=== PATIENT | female | born 1930 | race Caucasian/White ===

== ENCOUNTER 2017-02-25 09:37 | Inpatient (IN) | payer MEDICARE, MEDICAID ==
[~2017-02-25] VITALS: Ht 160 cm; Wt 59.0 kg
[~2017-02-25 09:37] MED LIST: AMLO10TA PO; ATEN25TA PO; DONE10TA6 PO; HALO0.5T PO; MEMA10TA PO; OXYB5TAB29 PO; QUET25TA PO; SIMV20TA5 PO; WARF2.5T PO; WARF5TAB7 PO
[2017-02-25 11:15] LABS: BASOPHILS # (AUTO) 0.1 X10'3 (0-0.2); BASOPHILS % (AUTO) 0.6 % (0-1); EOSINOPHILS # (AUTO) 0.4 X10'3 (0-0.9); HEMATOCRIT 37.9 % (35.0-45.0); HEMOGLOBIN 12.8 g/dl (12.0-16.0); LYMPHOCYTES # (AUTO) 1.1 X10'3 (1.1-4.8); LYMPHOCYTES % (AUTO) 11.6 % (21-51); MEAN CORPUSCULAR HEMOGLOBIN 31.4 PG (27.0-31.0); MEAN CORPUSCULAR HGB CONC 33.8 % (33.0-36.5); MEAN CORPUSCULAR VOLUME 92.9 FL (78-98); MEAN PLATELET VOLUME 8.3 FL (7.4-10.4); MONOCYTES # (AUTO) 0.7 X10'3 (0-0.9); MONOCYTES % (AUTO) 8.1 % (2-12); NEUTROPHILS # (AUTO) 6.9 X10'3 (1.8-7.7); NEUTROPHILS % (AUTO) 75.7 % (42-75); PLATELET COUNT 199 X10'3 (140-440); RED BLOOD COUNT 4.08 X10'6 (4.20-5.60); RED CELL DISTRIBUTION WIDTH 15.1 % (11.5-14.5); WHITE BLOOD COUNT 9.1 X10'3 (4.5-11.0)
[2017-02-25 11:21] LABS: INR 2.7 INR; PROTHROMBIN TIME 27.4 SECONDS (9.0-12.0)
[2017-02-25 11:28] LABS: ALANINE AMINOTRANSFERASE 20 U/L (12-78); ALBUMIN 3.3 G/DL (3.4-5.0); ALBUMIN/GLOBULIN RATIO 0.8 (1.1-1.5); ALKALINE PHOSPHATASE 56 IU/L (46-116); ANION GAP 6 (8-16); ASPARTATE AMINO TRANSFERASE 18 U/L (10-37); BILIRUBIN,TOTAL 0.7 MG/DL (0.1-1.0); BLOOD UREA NITROGEN 16 MG/DL (7-18); BUN/CREATININE RATIO 16.8 (6.6-38.0); CALCIUM 9.2 MG/DL (8.5-10.1); CHLORIDE 107 MMOL/L (99-107); CREATININE 0.95 MG/DL (0.40-0.90); GLUCOSE 101 MG/DL (70-104); SODIUM 142 MMOL/L (135-145); TOTAL CARBON DIOXIDE 28.7 MMOL/L (24-32); TOTAL PROTEIN 7.5 G/DL (6.4-8.2); eGFR 56 ML/MIN
[2017-02-25] MEDS ORDERED: potassium Cl 40MEQ/NS 500ml 500 ML IV PRN ×2 (12:30)
[2017-02-25] MEDS ORDERED: magnesium 2GM in 50ml NS 50 ML IV PRN (12:30)
[2017-02-25] MEDS ORDERED: magnesium 4gm in 100ml NS 100 ML IV PRN (12:30)
[2017-02-25] MEDS ORDERED: ondansetron/PF 4mg/2ml inj IV PRN (12:30)
[2017-02-25] MEDS ORDERED: bisacodyl 10mg suppository rectal RC PRN (12:30)
[2017-02-25] MEDS ORDERED: acetaminophen 650mg rectal suppository RC PRN (12:30)
[2017-02-25 14:10] LABS: CLARITY,URINE Cloudy (Clear); COLOR,URINE Yellow (Yellow); GLUCOSE, URINE Negative (Neg); KETONES,URINE 15 mg/dl (Neg); LEUKOCYTE ESTERASE ,URINE Small (Neg); NITRITES, URINE Positive (Neg); OCCULT BLOOD,URINE Small (Neg); PH,URINE 5.5 (4.8-8.0); PROTEIN,URINE Negative (Neg)
[2017-02-25 14:11] LABS: UA COLLECTION TYPE FOLEY CATH
[2017-02-25] MEDS ORDERED: phytonadione inj. 5 MG in normal saline 100ml IV soln 99.5 ML IV ONE (14:15)
[2017-02-25 14:17] LABS: BACTERIA,URINE 4+ /HPF (Neg); FINE GRANULAR CAST 0-3 /LPF (NEGATIVE); SQUAMOUS EPITHELIAL CELL,UR NONE SEEN /LPF (FEW); WBC CLUMPS,URINE FEW /HPF (NEGATIVE)
[2017-02-25 19:00] VITALS: BP 126/69
[2017-02-25] MEDS: normal saline 1000ml 1,000 ML IV SCH (20:55)
[2017-02-25] MEDS: atorvastatin 10mg tablet PO SCH (21:00)
[2017-02-25] MEDS: metoprolol tartrate 25mg tablet PO SCH (21:00)
[2017-02-25] MEDS: QUEtiapine 25mg tablet PO SCH (21:00)
[2017-02-25 23:00] VITALS: BP 124/68
[2017-02-26] VITALS (19 sets, daily range): BP systolic 85–142; BP diastolic 49–88
[2017-02-26 06:02] LABS: BASOPHILS % (AUTO) 0.3 % (0-1); EOSINOPHILS # (AUTO) 0.2 X10'3 (0-0.9); EOSINOPHILS % (AUTO) 3.4 % (0-6); HEMATOCRIT 35.9 % (35.0-45.0); LYMPHOCYTES # (AUTO) 1.1 X10'3 (1.1-4.8); LYMPHOCYTES % (AUTO) 15.1 % (21-51); MEAN CORPUSCULAR HEMOGLOBIN 31.2 PG (27.0-31.0); MEAN CORPUSCULAR HGB CONC 33.3 % (33.0-36.5); MEAN CORPUSCULAR VOLUME 93.6 FL (78-98); MONOCYTES # (AUTO) 0.7 X10'3 (0-0.9); MONOCYTES % (AUTO) 10.2 % (2-12); NEUTROPHILS # (AUTO) 5.1 X10'3 (1.8-7.7); PLATELET COUNT 193 X10'3 (140-440); RED BLOOD COUNT 3.84 X10'6 (4.20-5.60); RED CELL DISTRIBUTION WIDTH 14.7 % (11.5-14.5); WHITE BLOOD COUNT 7.2 X10'3 (4.5-11.0)
[2017-02-26 06:23] LABS: INR 1.1 INR; PROTHROMBIN TIME 11.6 SECONDS (9.0-12.0)
[2017-02-26 06:29] LABS: ALANINE AMINOTRANSFERASE 20 U/L (12-78); ALBUMIN 3.1 G/DL (3.4-5.0); ALBUMIN/GLOBULIN RATIO 0.8 (1.1-1.5); ALKALINE PHOSPHATASE 52 IU/L (46-116); ANION GAP 10 (8-16); ASPARTATE AMINO TRANSFERASE 17 U/L (10-37); BILIRUBIN,TOTAL 0.9 MG/DL (0.1-1.0); BLOOD UREA NITROGEN 17 MG/DL (7-18); BUN/CREATININE RATIO 18.7 (6.6-38.0); CALCIUM 8.6 MG/DL (8.5-10.1); CHLORIDE 107 MMOL/L (99-107); CHOL/HDL RATIO 2.3 (0.00-4.99); CHOLESTEROL 139 MG/DL (0-200); CREATININE 0.91 MG/DL (0.40-0.90); GLUCOSE 85 MG/DL (70-104); HDL CHOLESTEROL 61 MG/DL (35-60); LDL CHOLESTEROL 65 MG/DL (50-100); MAGNESIUM 2.1 MG/DL (1.5-2.4); SODIUM 141 MMOL/L (135-145); TOTAL CARBON DIOXIDE 23.8 MMOL/L (24-32); TOTAL PROTEIN 7.1 G/DL (6.4-8.2); TRIGLYCERIDES 77 MG/DL (20-135); eGFR 58 ML/MIN
[2017-02-26] MEDS: oxybutynin 5mg tablet PO SCH ×2 (07:47→20:32)
[2017-02-26] MEDS: amLODIPine 5mg tablet PO SCH (07:48)
[2017-02-26] MEDS: metoprolol tartrate 25mg tablet PO SCH ×3 (07:48→20:33)
[2017-02-26] MEDS: normal saline 1000ml 1,000 ML IV SCH ×2 (07:48→15:54)
[2017-02-26] MEDS: haloperidol 1mg tablet PO SCH (07:48)
[2017-02-26] MEDS: K and/or MAG REPLACEMENT MC SCH (08:00)
[2017-02-26] MEDS ORDERED: ePHEDrine 50MG/ML INJ. ONE (09:55)
[2017-02-26] MEDS ORDERED: phenylephrine 10mg/ml inj IV ONE (09:55)
[2017-02-26] MEDS ORDERED: ceFAZolin 1000mg inj ONE (09:55)
[2017-02-26] MEDS ORDERED: ringers solution, lacted 1,000 ML IV SCH (10:18)
[2017-02-26] MEDS ORDERED: ondansetron/PF 4mg/2ml inj IV PRN (10:20)
[2017-02-26] MEDS ORDERED: proCHLORperazine 10 MG/2 ml inj IV PRN (10:20)
[2017-02-26] MEDS ORDERED: meperidine/PF 25mg/ml syringe IV PRN (10:20)
[2017-02-26] MEDS ORDERED: acetaminophen 325mg tablet PO PRN (10:30)
[2017-02-26] MEDS ORDERED: magnesium hydroxide 30ml (MOM) UD suspension PO PRN (10:30)
[2017-02-26] MEDS ORDERED: bisacodyl 10mg suppository rectal RC PRN (10:30)
[2017-02-26] MEDS ORDERED: diphenhydrAMINE 25mg capsule PO PRN ×2 (10:30)
[2017-02-26] MEDS: cefazolin 1gm/NS 100mL 100 ML IV SCH (15:54)
[2017-02-26] MEDS: QUEtiapine 25mg tablet PO SCH (20:33)
[2017-02-26] MEDS: sennosides 8.6mg tablet PO SCH (21:00)
[2017-02-26] MEDS: atorvastatin 10mg tablet PO SCH (21:00)
[2017-02-27] VITALS (7 sets, daily range): BP systolic 98–122; BP diastolic 53–68
[2017-02-27] MEDS: cefazolin 1gm/NS 100mL 100 ML IV SCH (00:31)
[2017-02-27 06:03] LABS: BASOPHILS % (AUTO) 0.3 % (0-1); EOSINOPHILS # (AUTO) 0.2 X10'3 (0-0.9); EOSINOPHILS % (AUTO) 3.4 % (0-6); HEMATOCRIT 30.1 % (35.0-45.0); HEMOGLOBIN 10.2 g/dl (12.0-16.0); LYMPHOCYTES # (AUTO) 0.9 X10'3 (1.1-4.8); LYMPHOCYTES % (AUTO) 16.1 % (21-51); MEAN CORPUSCULAR HEMOGLOBIN 31.3 PG (27.0-31.0); MEAN CORPUSCULAR HGB CONC 33.8 % (33.0-36.5); MEAN CORPUSCULAR VOLUME 92.6 FL (78-98); MEAN PLATELET VOLUME 8.6 FL (7.4-10.4); MONOCYTES # (AUTO) 0.8 X10'3 (0-0.9); MONOCYTES % (AUTO) 12.9 % (2-12); NEUTROPHILS # (AUTO) 3.9 X10'3 (1.8-7.7); NEUTROPHILS % (AUTO) 67.3 % (42-75); PLATELET COUNT 166 X10'3 (140-440); RED BLOOD COUNT 3.25 X10'6 (4.20-5.60); RED CELL DISTRIBUTION WIDTH 14.6 % (11.5-14.5); WHITE BLOOD COUNT 5.9 X10'3 (4.5-11.0)
[2017-02-27 06:12] LABS: INR 1.1 INR; PROTHROMBIN TIME 10.9 SECONDS (9.0-12.0)
[2017-02-27 06:29] LABS: ALANINE AMINOTRANSFERASE 16 U/L (12-78); ALBUMIN 2.6 G/DL (3.4-5.0); ALBUMIN/GLOBULIN RATIO 0.7 (1.1-1.5); ALKALINE PHOSPHATASE 45 IU/L (46-116); ANION GAP 9 (8-16); ASPARTATE AMINO TRANSFERASE 16 U/L (10-37); BILIRUBIN,TOTAL 0.6 MG/DL (0.1-1.0); BLOOD UREA NITROGEN 13 MG/DL (7-18); BUN/CREATININE RATIO 17.3 (6.6-38.0); CHLORIDE 107 MMOL/L (99-107); CREATININE 0.75 MG/DL (0.40-0.90); GLUCOSE 108 MG/DL (70-104); MAGNESIUM 1.8 MG/DL (1.5-2.4); POTASSIUM 3.5 MMOL/L (3.5-5.1); SODIUM 139 MMOL/L (135-145); TOTAL CARBON DIOXIDE 23.2 MMOL/L (24-32); TOTAL PROTEIN 6.1 G/DL (6.4-8.2); eGFR 73 ML/MIN
[2017-02-27] MEDS: normal saline 1000ml 1,000 ML IV SCH ×2 (07:01→20:42)
[2017-02-27] MEDS: K and/or MAG REPLACEMENT MC SCH (07:03)
[2017-02-27] MEDS ORDERED: enoxaparin 40mg/0.4ml syringe SQ SCH (08:00)
[2017-02-27] MEDS: cefTRIAXone 1g/NS 100ml IVPB 100 ML IV SCH (10:13)
[2017-02-27] MEDS ORDERED: DIVA125C10 (10:51)
[2017-02-27] MEDS ORDERED: OLAN2.5T28 (10:51)
[2017-02-27] MEDS ORDERED: OSEL75CA17 (10:51)
[2017-02-27] MEDS ORDERED: OSEL30CA2 (10:51)
[2017-02-27] MEDS: memantine 5mg tablet PO SCH (11:31)
[2017-02-27] MEDS: haloperidol 1mg tablet PO SCH (11:31)
[2017-02-27] MEDS: amLODIPine 5mg tablet PO SCH (11:33)
[2017-02-27] MEDS: metoprolol tartrate 25mg tablet PO SCH ×3 (11:33→21:18)
[2017-02-27] MEDS: oxybutynin 5mg tablet PO SCH ×2 (11:33→21:19)
[2017-02-27] MEDS: QUEtiapine 25mg tablet PO SCH (21:00)
[2017-02-27] MEDS ORDERED: warfarin 5mg tablet PO ONE (21:00)
[2017-02-27] MEDS: atorvastatin 10mg tablet PO SCH (21:18)
[2017-02-27] MEDS: sennosides 8.6mg tablet PO SCH (21:18)
[2017-02-27] MEDS: enoxaparin 60mg/0.6ml syringe SUBCUT SCH (21:19)
[2017-02-28 06:00] VITALS: BP 112/67
[2017-02-28 06:37] LABS: BASOPHILS % (AUTO) 0.4 % (0-1); EOSINOPHILS # (AUTO) 0.3 X10'3 (0-0.9); EOSINOPHILS % (AUTO) 5.5 % (0-6); HEMATOCRIT 29.2 % (35.0-45.0); HEMOGLOBIN 9.8 g/dl (12.0-16.0); LYMPHOCYTES % (AUTO) 16.1 % (21-51); MEAN CORPUSCULAR HEMOGLOBIN 31.1 PG (27.0-31.0); MEAN CORPUSCULAR HGB CONC 33.7 % (33.0-36.5); MEAN CORPUSCULAR VOLUME 92.4 FL (78-98); MEAN PLATELET VOLUME 8.5 FL (7.4-10.4); MONOCYTES # (AUTO) 0.5 X10'3 (0-0.9); MONOCYTES % (AUTO) 8.7 % (2-12); NEUTROPHILS # (AUTO) 4.1 X10'3 (1.8-7.7); NEUTROPHILS % (AUTO) 69.3 % (42-75); PLATELET COUNT 181 X10'3 (140-440); RED BLOOD COUNT 3.16 X10'6 (4.20-5.60); RED CELL DISTRIBUTION WIDTH 14.7 % (11.5-14.5)
[2017-02-28 06:44] LABS: PROTHROMBIN TIME 10.4 SECONDS (9.0-12.0)
[2017-02-28 06:54] LABS: ALANINE AMINOTRANSFERASE 15 U/L (12-78); ALBUMIN 2.4 G/DL (3.4-5.0); ALBUMIN/GLOBULIN RATIO 0.7 (1.1-1.5); ALKALINE PHOSPHATASE 43 IU/L (46-116); ANION GAP 7 (8-16); ASPARTATE AMINO TRANSFERASE 14 U/L (10-37); BILIRUBIN,TOTAL 0.5 MG/DL (0.1-1.0); BLOOD UREA NITROGEN 11 MG/DL (7-18); BUN/CREATININE RATIO 14.3 (6.6-38.0); CALCIUM 8.2 MG/DL (8.5-10.1); CHLORIDE 110 MMOL/L (99-107); CREATININE 0.77 MG/DL (0.40-0.90); GLUCOSE 93 MG/DL (70-104); MAGNESIUM 1.9 MG/DL (1.5-2.4); POTASSIUM 3.4 MMOL/L (3.5-5.1); SODIUM 141 MMOL/L (135-145); TOTAL CARBON DIOXIDE 24.2 MMOL/L (24-32); TOTAL PROTEIN 5.9 G/DL (6.4-8.2); eGFR 71 ML/MIN
[2017-02-28] MEDS: K and/or MAG REPLACEMENT MC SCH (08:00)
[2017-02-28] MEDS: haloperidol 1mg tablet PO SCH (08:07)
[2017-02-28] MEDS: LACTOBACILLUS RHAMNOSUS GG 15 billion unit sprinkle caps PO SCH (08:07)
[2017-02-28] MEDS: memantine 5mg tablet PO SCH (08:07)
[2017-02-28] MEDS: cefTRIAXone 1g/NS 100ml IVPB 100 ML IV SCH (08:07)
[2017-02-28] MEDS: enoxaparin 60mg/0.6ml syringe SUBCUT SCH ×2 (08:08→20:21)
[2017-02-28] MEDS: amLODIPine 5mg tablet PO SCH (08:08)
[2017-02-28] MEDS: oxybutynin 5mg tablet PO SCH ×2 (08:08→20:20)
[2017-02-28] MEDS: metoprolol tartrate 25mg tablet PO SCH ×3 (08:09→20:20)
[2017-02-28 10:00] VITALS: BP 130/77
[2017-02-28] MEDS: levoFLOXACIN 500mg tablet PO SCH (16:14)
[2017-02-28] MEDS: normal saline 1000ml 1,000 ML IV SCH (16:58)
[2017-02-28 18:02] VITALS: BP 137/76
[2017-02-28 20:19] VITALS: BP 124/79
[2017-02-28] MEDS: atorvastatin 10mg tablet PO SCH (20:20)
[2017-02-28] MEDS: sennosides 8.6mg tablet PO SCH (20:20)
[2017-02-28] MEDS: QUEtiapine 25mg tablet PO SCH (20:21)
[2017-02-28] MEDS ORDERED: warfarin 5mg tablet PO ONE (21:00)
[2017-02-28 22:06] VITALS: BP 91/49
[2017-03-01 06:00] VITALS: BP 104/57
[2017-03-01 06:31] LABS: BASOPHILS % (AUTO) 0.2 % (0-1); EOSINOPHILS # (AUTO) 0.4 X10'3 (0-0.9); EOSINOPHILS % (AUTO) 7.6 % (0-6); HEMATOCRIT 29.9 % (35.0-45.0); HEMOGLOBIN 9.9 g/dl (12.0-16.0); LYMPHOCYTES % (AUTO) 17.2 % (21-51); MEAN CORPUSCULAR HEMOGLOBIN 30.9 PG (27.0-31.0); MEAN CORPUSCULAR VOLUME 93.5 FL (78-98); MEAN PLATELET VOLUME 8.6 FL (7.4-10.4); MONOCYTES # (AUTO) 0.5 X10'3 (0-0.9); MONOCYTES % (AUTO) 8.7 % (2-12); NEUTROPHILS # (AUTO) 3.7 X10'3 (1.8-7.7); NEUTROPHILS % (AUTO) 66.3 % (42-75); PLATELET COUNT 190 X10'3 (140-440); RED CELL DISTRIBUTION WIDTH 14.4 % (11.5-14.5); WHITE BLOOD COUNT 5.6 X10'3 (4.5-11.0)
[2017-03-01 06:44] LABS: ALANINE AMINOTRANSFERASE 16 U/L (12-78); ALBUMIN 2.4 G/DL (3.4-5.0); ALBUMIN/GLOBULIN RATIO 0.6 (1.1-1.5); ALKALINE PHOSPHATASE 43 IU/L (46-116); ANION GAP 8 (8-16); ASPARTATE AMINO TRANSFERASE 21 U/L (10-37); BILIRUBIN,TOTAL 0.5 MG/DL (0.1-1.0); BLOOD UREA NITROGEN 8 MG/DL (7-18); BUN/CREATININE RATIO 13.3 (6.6-38.0); CALCIUM 8.3 MG/DL (8.5-10.1); CHLORIDE 111 MMOL/L (99-107); GLUCOSE 85 MG/DL (70-104); MAGNESIUM 1.8 MG/DL (1.5-2.4); SODIUM 142 MMOL/L (135-145); TOTAL CARBON DIOXIDE 23.3 MMOL/L (24-32); TOTAL PROTEIN 6.1 G/DL (6.4-8.2); eGFR > 90 ML/MIN
[2017-03-01 06:55] LABS: INR 1.1 INR; PROTHROMBIN TIME 11.2 SECONDS (9.0-12.0)
[2017-03-01 07:15] LABS: POTASSIUM 2.9 MMOL/L (3.5-5.1)
[2017-03-01] MEDS ORDERED: potassium Cl 20 mEq SR tablet PO PRN ×2 (07:20)
[2017-03-01] MEDS ORDERED: potassium Cl 40MEQ/NS 500ml 500 ML IV PRN (07:20)
[2017-03-01] MEDS: enoxaparin 60mg/0.6ml syringe SUBCUT SCH ×3 (08:00→20:09)
[2017-03-01] MEDS: K and/or MAG REPLACEMENT MC SCH (08:00)
[2017-03-01] MEDS: haloperidol 1mg tablet PO SCH (09:35)
[2017-03-01] MEDS: LACTOBACILLUS RHAMNOSUS GG 15 billion unit sprinkle caps PO SCH (09:35)
[2017-03-01] MEDS: memantine 5mg tablet PO SCH (09:35)
[2017-03-01] MEDS: metoprolol tartrate 25mg tablet PO SCH ×3 (09:36→20:33)
[2017-03-01] MEDS: amLODIPine 5mg tablet PO SCH (09:36)
[2017-03-01] MEDS: oxybutynin 5mg tablet PO SCH ×2 (09:36→20:08)
[2017-03-01] MEDS: potassium Cl 40MEQ/NS 500ml 500 ML IV PRN ×2 (09:37→20:15)
[2017-03-01 11:00] VITALS: BP 122/66
[2017-03-01] MEDS: levoFLOXACIN 500mg tablet PO SCH (11:00)
[2017-03-01 18:00] VITALS: BP 123/65
[2017-03-01] MEDS: sennosides 8.6mg tablet PO SCH (20:08)
[2017-03-01] MEDS: QUEtiapine 25mg tablet PO SCH (20:08)
[2017-03-01] MEDS: atorvastatin 10mg tablet PO SCH (20:08)
[2017-03-01] MEDS ORDERED: warfarin 7.5mg tablet PO ONE (21:00)
[2017-03-01] MEDS: normal saline 1000ml 1,000 ML IV SCH (21:36)
[2017-03-01 22:00] VITALS: BP 122/64
[2017-03-02] MEDS: normal saline 1000ml 1,000 ML IV SCH ×2 (02:34→23:53)
[2017-03-02 05:00] VITALS: BP 128/73
[2017-03-02 06:15] LABS: BASOPHILS % (AUTO) 0.3 % (0-1); EOSINOPHILS # (AUTO) 0.4 X10'3 (0-0.9); EOSINOPHILS % (AUTO) 6.5 % (0-6); HEMATOCRIT 29.5 % (35.0-45.0); HEMOGLOBIN 9.7 g/dl (12.0-16.0); LYMPHOCYTES # (AUTO) 1.1 X10'3 (1.1-4.8); LYMPHOCYTES % (AUTO) 19.6 % (21-51); MEAN CORPUSCULAR HGB CONC 33.1 % (33.0-36.5); MEAN CORPUSCULAR VOLUME 93.9 FL (78-98); MEAN PLATELET VOLUME 8.4 FL (7.4-10.4); MONOCYTES # (AUTO) 0.5 X10'3 (0-0.9); MONOCYTES % (AUTO) 9.5 % (2-12); NEUTROPHILS # (AUTO) 3.6 X10'3 (1.8-7.7); NEUTROPHILS % (AUTO) 64.1 % (42-75); PLATELET COUNT 210 X10'3 (140-440); RED BLOOD COUNT 3.14 X10'6 (4.20-5.60); RED CELL DISTRIBUTION WIDTH 14.4 % (11.5-14.5); WHITE BLOOD COUNT 5.6 X10'3 (4.5-11.0)
[2017-03-02 06:19] LABS: INR 1.3 INR; PROTHROMBIN TIME 13.1 SECONDS (9.0-12.0)
[2017-03-02 06:34] LABS: ALANINE AMINOTRANSFERASE 13 U/L (12-78); ALBUMIN 2.6 G/DL (3.4-5.0); ALBUMIN/GLOBULIN RATIO 0.7 (1.1-1.5); ALKALINE PHOSPHATASE 45 IU/L (46-116); ANION GAP 8 (8-16); ASPARTATE AMINO TRANSFERASE 17 U/L (10-37); BILIRUBIN,TOTAL 0.5 MG/DL (0.1-1.0); BLOOD UREA NITROGEN 7 MG/DL (7-18); CALCIUM 8.5 MG/DL (8.5-10.1); CHLORIDE 110 MMOL/L (99-107); GLUCOSE 82 MG/DL (70-104); MAGNESIUM 1.9 MG/DL (1.5-2.4); POTASSIUM 3.7 MMOL/L (3.5-5.1); SODIUM 143 MMOL/L (135-145); TOTAL CARBON DIOXIDE 24.7 MMOL/L (24-32); TOTAL PROTEIN 6.1 G/DL (6.4-8.2); eGFR 79 ML/MIN
[2017-03-02] MEDS: K and/or MAG REPLACEMENT MC SCH (07:53)
[2017-03-02] MEDS: oxybutynin 5mg tablet PO SCH ×2 (08:00→20:48)
[2017-03-02] MEDS: memantine 5mg tablet PO SCH (08:00)
[2017-03-02] MEDS: LACTOBACILLUS RHAMNOSUS GG 15 billion unit sprinkle caps PO SCH (08:00)
[2017-03-02] MEDS: haloperidol 1mg tablet PO SCH (08:00)
[2017-03-02] MEDS: amLODIPine 5mg tablet PO SCH (08:00)
[2017-03-02] MEDS: metoprolol tartrate 25mg tablet PO SCH ×3 (08:00→20:50)
[2017-03-02] MEDS: enoxaparin 60mg/0.6ml syringe SUBCUT SCH ×2 (08:07→21:02)
[2017-03-02 10:00] VITALS: BP 122/68
[2017-03-02] MEDS: levoFLOXACIN 500mg tablet PO SCH (10:41)
[2017-03-02 18:00] VITALS: BP 113/60
[2017-03-02] MEDS: atorvastatin 10mg tablet PO SCH (20:49)
[2017-03-02] MEDS: QUEtiapine 25mg tablet PO SCH (20:49)
[2017-03-02] MEDS: sennosides 8.6mg tablet PO SCH (20:50)
[2017-03-02] MEDS ORDERED: warfarin 10mg tablet PO ONE (21:00)
[2017-03-02 22:00] VITALS: BP 122/74
[2017-03-03 06:00] VITALS: BP 116/68
[2017-03-03 07:29] LABS: PROTHROMBIN TIME 20.6 SECONDS (9.0-12.0)
[2017-03-03] MEDS: K and/or MAG REPLACEMENT MC SCH (08:00)
[2017-03-03] MEDS: oxybutynin 5mg tablet PO SCH (08:07)
[2017-03-03] MEDS: enoxaparin 60mg/0.6ml syringe SUBCUT SCH (08:07)
[2017-03-03] MEDS: LACTOBACILLUS RHAMNOSUS GG 15 billion unit sprinkle caps PO SCH (08:07)
[2017-03-03] MEDS: memantine 5mg tablet PO SCH (08:07)
[2017-03-03] MEDS: metoprolol tartrate 25mg tablet PO SCH ×2 (08:07→13:00)
[2017-03-03] MEDS: haloperidol 1mg tablet PO SCH (08:07)
[2017-03-03] MEDS: amLODIPine 5mg tablet PO SCH (08:08)
[2017-03-03 10:00] VITALS: BP 115/64
[2017-03-03] MEDS: levoFLOXACIN 500mg tablet PO SCH (11:16)
[2017-03-03 13:29] VITALS: BP 109/65
[2017-03-03] MEDS ORDERED: LEVO500T89 PO (13:59)
[2017-03-03] MEDS ORDERED: warfarin 5mg tablet PO ONE (21:00)
== END 2017-03-03 17:00 | DRG 480 ==
LOC: ER 09:37 → ED HOLD 12:27 → PCU 3S 17:54 → ORTHO 4S 02-26 11:54
PROVIDERS: ADMIT Family Medicine; ATTEND Emergency Medicine
PROC: 0QH734Z Insertion of Internal Fixation Device into Left Upper Femur, Percutaneous Approach (ICD-10-PCS; principal; 2017-02-26 09:06)
DX: S72.002A Fracture of unspecified part of neck of left femur, initial encounter for closed fracture (principal); G93.40 Encephalopathy, unspecified; I48.2 Chronic atrial fibrillation; F03.91 Unspecified dementia, unspecified severity, with behavioral disturbance; N39.0 Urinary tract infection, site not specified; I10 Essential (primary) hypertension; E78.00 Pure hypercholesterolemia, unspecified; B96.20 Unspecified Escherichia coli [E. coli] as the cause of diseases classified elsewhere; Z88.2 Allergy status to sulfonamides; Z79.01 Long term (current) use of anticoagulants; Z79.899 Other long term (current) drug therapy; Z91.81 History of falling; W18.39XA Other fall on same level, initial encounter; Y92.128 Other place in nursing home as the place of occurrence of the external cause; Y93.89 Activity, other specified; Y99.8 Other external cause status
CPT/HCPCS: 27187; 36415; 71045; 73502; 76000; 80053; 80061; 81001; 83605; 83735; 85025; 85610; 87040; 87088; 87186; 93005; 97110; 97116; 97162; 97530; 99285; A4315; A6209; A6213; A6222; A6251; A6257; A7000; J0690; J0696; J1650; J2370; J3430; J3480; J7030; J7120